=== PATIENT | female | born 1940 | race Caucasian/White ===

== ENCOUNTER 2021-05-13 11:18 | Outpatient (REF) | payer MEDICARE, SELFPAY | END 2021-05-13 11:19 | disposition home or self-care (01) | LOC: HO.LAB 11:18 | PROVIDERS: PCP Internal Medicine; Visit Provider Internal Medicine | DX: Z20.822 Contact with and (suspected) exposure to COVID-19 (principal) | CPT/HCPCS: C9803; U0003; U0005 ==

== ENCOUNTER 2021-08-11 09:49 | Outpatient (REF) | payer MEDICARE, SELFPAY ==
--- NOTE | ~2021-08-11 | MM_ITS ---
EXAMINATION: MM SCREENING DIGITAL BREAST TOMOSYNTHESIS, BILATERAL CLINICAL INFORMATION: Screening. Asymptomatic. The lifetime risk of breast cancer based on the Tyrer-Cuzick Model is 0.8%. COMPARISON: Mammography: June 04, 2020 and studies dating back to November 03, 2016 TECHNIQUE: Digital breast tomosynthesis is performed in both the craniocaudal and mediolateral oblique views along with computer-aided detection (CAD). Synthesized 2D images are generated from the tomosynthesis. Left exaggerated craniocaudal view also performed. FINDINGS: There are scattered areas of fibroglandular density (ACR BI-RADS breast composition Category b). There are no significant masses, abnormal calcifications, or other abnormalities. MM/MM tomosynthesis screening BI IMPRESSION: There are no significant changes from prior study. ASSESSMENT: BI-RADS 1: Negative RECOMMENDATION: Routine annual mammography screening. This patient's information was entered into a reminder system with a target due date for their next mammogram.
== END 2021-08-11 09:50 | disposition home or self-care (01) ==
LOC: HO.MAMMO 09:49
PROVIDERS: Visit Provider Internal Medicine
DX: Z12.31 Encounter for screening mammogram for malignant neoplasm of breast (principal)
CPT/HCPCS: 77063; 77067

== ENCOUNTER 2022-08-12 11:56 | Outpatient (REF) | payer MEDICARE, SELFPAY ==
--- NOTE | ~2022-08-12 | MM_ITS ---
EXAMINATION: MM SCREENING DIGITAL BREAST TOMOSYNTHESIS, BILATERAL CLINICAL INFORMATION: Screening. Asymptomatic. The lifetime risk of breast cancer based on the Tyrer-Cuzick Model is 0.4%. COMPARISON: Mammography: August 11, 2021 and studies dating back to July 02, 2003 TECHNIQUE: Digital breast tomosynthesis is performed in both the craniocaudal and mediolateral oblique views along with computer-aided detection (CAD). Synthesized 2D images are generated from the tomosynthesis. FINDINGS: There are scattered areas of fibroglandular density (ACR BI-RADS breast composition Category b). There are no significant masses, abnormal calcifications, or other abnormalities. MM/MM tomosynthesis screening BI IMPRESSION: No significant changes from prior exam. ASSESSMENT: BI-RADS 1: Negative RECOMMENDATION: Routine annual mammography screening. This patient's information was entered into a reminder system with a target due date for their next mammogram.
== END 2022-08-12 11:57 | disposition home or self-care (01) ==
LOC: HO.MAMMO 11:56
PROVIDERS: PCP Internal Medicine; Visit Provider Internal Medicine
DX: Z12.31 Encounter for screening mammogram for malignant neoplasm of breast (principal)
CPT/HCPCS: 77063; 77067

== ENCOUNTER → 2022-10-19 12:42 | Outpatient (REF) | payer MEDICARE, SELFPAY ==
--- NOTE | 2022-10-19 12:45 | CA_ITS ---
Transthoracic Echocardiogram Patient (Last, First, Middle): Cristina Rey A Gender: Female Date of : 1940 Age: 82 Procedure Date: 10/19/2022 Procedure Type: Transthoracic Echocardiogram Location: OP Height: 167.64 cm Weight: 111.59 kg BSA: 2.18 m2 Heart Rate: 74 bpm BP: 160 / 90 mmHg Buffet Waiter/Waitress: ROBE Referring MD: Rishi Curiel MD Symptoms: NEW MURMUR Study Quality: Technically Difficult/Contrast ECG Rhythm: Sinus Conclusions: - The left ventricular systolic function is hyperdynamic. The visually estimated ejection fraction is >70%. - There is severe aortic valve stenosis. Findings Procedure Information Contrast agent, definity, is being given per protocol without apparent complications. Left Ventricle Normal left ventricular cavity size. There is normal left ventricular wall thickness. The left ventricular systolic function is hyperdynamic. The visually estimated ejection fraction is >70%. There is no evidence of regional wall motion abnormalities. Diastolic function is normal for age. Right Ventricle Normal right ventricular cavity size. There is normal right ventricular systolic function. TAPSE slightly decreased, but could be underestimate. Atria Both atria are normal in size. Aortic Valve There is severe calcification of the aortic valve. There is severe aortic valve stenosis. The peak aortic velocity is 4.29 m/s with a calculated peak gradient of 74 mmHg. The mean gradient is 52 mmHg. The aortic valve area is 0.80 cm2. There is no aortic valve regurgitation. Mitral Valve There is moderate mitral annular calcification. Mean gradient across the mitral valve 4 mm Hg at 74/Min. Cannot exclude mild mitral stenosis. Pulmonic Valve The pulmonic valve is likely normal. Tricuspid Valve There is trace tricuspid valve regurgitation. Tricuspid regurgitation envelope is inadequate for calculation of right ventricular systolic pressure. Great Vessels The asc aorta is normal in size. Venous The inferior vena cava is normal in size and collapses greater than 50% with inspiration. Pericardium/Pleural There is no evidence of pericardial effusion. Prior Study Comparison Changes noted compared to prior study dated: 05/02/2019. Progression of aortic stenosis. Measurements 2D Linear Measurements IVSd: 0.97 0.6-0.9/0.6-1.0 cm LVIDd: 4.48 3.9-5.3/4.2-5.9 cm LVIDd Index: 2.06 2.4-3.2/2.2-3.1 cm/m2 LVIDs: 2.99 2.0-3.6 cm LVPWd: 0.92 0.7-1.1 cm LA Diam: 4.40 2.7-3.8/3.0-4.0 cm LAIDs Index: 2.02 1.5-2.3 cm/m2 LV Mass: 174.16 67-162/88-224 g LV Mass Index: 79.89 43-95/49-115 g/m2 LVOT Diam: 2.00 3.0+(-)1.3 cm 2D Systolic Function EF 4C: 84.10 >55% EF 2C: 81.00 >55% EF BiP: 82.40 >55% Mitral Valve MV VTI: 0.35 MV Pk Ja: 1.47 MV Mn Ja: 0.93 MV Pk Grad: 9.00 MV Mn Grad: 4.00 MV Pk E: 1.03 MV PK A: 1.50 MV Decel Time: 162.00 E/A: 0.70 E'Lateral: 5.43 E'Medial: 4.56 E/E' Med: 22.60 E/E' Lat: 19.00 PHT: 47.00 MVA PHT: 4.68 MVA Continuity: 2.36 Decel [place]: 6.34 Aortic Valve AoV Pk Ja: 4.29 AoV Mn Ja: 2.92 AoV VTI: 0.88 AoV Pk Grad: 74.00 Aov Mn Grad: 52.00 ARNULFO Cont.VTI: 0.80 LVOT LVOT Pk Ja: 1.11 LVOT Mn Ja: 0.84 LVOT VTI: 0.26 LVOT Pk Grad: 5.00 LVOT Mn Grad: 4.00 LVOT Diam: 2.00 LVOT Area: 3.14 Diastolic Function MV Pk E: 1.03 MV Pk A: 1.50 E/A: 0.70 E'Medial: 4.56 E/E' Med: 22.60 E' Laterial: 5.43 E/E' Lat: 19.00 Right Ventricle TAPSE (mm): 16.30 TVS' Ja: 11.70 Tricuspid Valve RA Press: 3.00 Great Vessels Aorta Sinus of Valsalva: 3.10 2.0-3.5 cm Ao Asc: 2.70 2.1-3.4 cm Pulmonary Valve PV Pk Ja: 0.98 Peak PV Grad: 4.00 Updated in Other Vendor System with Status of Final Chan Jones MD electronically signed on 10/20/2022 12:02:08 PM with status of Final
== END ==
LOC: HO.CARD 12:42
PROVIDERS: Visit Provider Internal Medicine
DX: R01.1 Cardiac murmur, unspecified (principal)
CPT/HCPCS: 93306; Q9957

== ENCOUNTER 2022-10-26 13:53 | Outpatient (REF) | payer MEDICARE, SELFPAY ==
[2022-10-26 16:02] LABS: Hematocrit 43.5 % (37.0-47.0); Hemoglobin 13.8 g/dl (12.0-16.0); Mean Corpuscular HGB Conc 31.7 g/dl (31.0-35.0); Mean Corpuscular Hemoglobin 28.7 pg (27.0-33.0); Mean Corpuscular Volume 90.4 fL (80.0-98.0); Platelet Count 183 X10*3/uL (160-400); Red Blood Count 4.81 X10*6/uL (4.20-5.50); Red Cell Distribution Width 12.6 % (11.0-16.0); White Blood Count 8.3 X10*3/uL (4.8-10.8)
[2022-10-26 16:14] LABS: Prothrombin Time 11.5 SEC (10.0-13.1)
[2022-10-26 17:40] LABS: Anion Gap 14 (12-20); Blood Urea Nitrogen 23 mg/dL (9-16); Calcium 9.8 mg/dL (8.4-10.2); Carbon Dioxide 26 mmol/L (22-29); Chloride 108 mmol/L (96-108); Estimated Glomerular Filt Rate > 60; Glucose Random 92 mg/dL (60-115); Potassium 4.8 mmol/L (3.3-5.1); Sodium 143 mmol/L (135-145)
== END 2022-10-26 13:54 | disposition home or self-care (01) ==
LOC: HO.LAB 13:53
PROVIDERS: PCP Internal Medicine; Visit Provider Internal Medicine
DX: I35.0 Nonrheumatic aortic (valve) stenosis (principal); I10 Essential (primary) hypertension
CPT/HCPCS: 36415; 80048; 85027; 85610; 99202

== ENCOUNTER → 2022-11-30 13:35 | Outpatient (BNVA) | payer MEDICARE, SELFPAY | PROVIDERS: PCP Internal Medicine; Referring Provider Internal Medicine; Visit Provider Internal Medicine | DX: I35.0 Nonrheumatic aortic (valve) stenosis (principal); I25.10 Atherosclerotic heart disease of native coronary artery without angina pectoris; I10 Essential (primary) hypertension; Z79.82 Long term (current) use of aspirin; Z79.899 Other long term (current) drug therapy | CPT/HCPCS: 99212 ==

== ENCOUNTER 2023-01-27 09:28 | Outpatient (REF) | payer MEDICARE, SELFPAY ==
[2023-01-27 10:10] LABS: Hemoglobin 13.2 g/dl (12.0-16.0); Mean Corpuscular HGB Conc 32.2 g/dl (31.0-35.0); Mean Corpuscular Hemoglobin 28.6 pg (27.0-33.0); Mean Corpuscular Volume 88.9 fL (80.0-98.0); Mean Platelet Volume 10.3 fL (9.4-12.3); Platelet Count 188 X10*3/uL (160-400); Red Blood Count 4.61 X10*6/uL (4.20-5.50); Red Cell Distribution Width 13.2 % (11.0-16.0); White Blood Count 8.4 X10*3/uL (4.8-10.8)
[2023-01-27 10:14] LABS: Prothrombin Time 11.3 SEC (10.0-13.1)
[2023-01-27 10:38] LABS: Anion Gap 14 (12-20); Blood Urea Nitrogen 25 mg/dL (9-16); Calcium 9.1 mg/dL (8.4-10.2); Carbon Dioxide 25 mmol/L (22-29); Chloride 109 mmol/L (96-108); Estimated Glomerular Filt Rate 60; Glucose Random 100 mg/dL (60-115); Sodium 143 mmol/L (135-145)
== END 2023-01-27 09:29 | disposition home or self-care (01) ==
LOC: HO.LAB 09:28
PROVIDERS: PCP Internal Medicine; Visit Provider Internal Medicine Cardiovascular Disease
DX: I35.0 Nonrheumatic aortic (valve) stenosis (principal)
CPT/HCPCS: 36415; 80048; 85027; 85610

== ENCOUNTER → 2023-03-24 12:41 | Outpatient (REF) | payer MEDICARE, SELFPAY ==
--- NOTE | 2023-03-24 12:46 | CA_ITS ---
Transthoracic Echocardiogram Patient (Last, First, Middle): Cristina Rey A Gender: Female Date of : 1940 Age: 83 Procedure Date: 03/24/2023 Procedure Type: Transthoracic Echocardiogram Location: OP Height: 167.64 cm Weight: 116.12 kg BSA: 2.22 m2 Heart Rate: 71 bpm BP: 150 / 82 mmHg It Architecture Analyst: SB Referring MD: Michael Good MD Barrow Worker: Fritz Teague MD Symptoms: S/P TRANSAORTIC VALVE REPLACEMENT Study Quality: Fair ECG Rhythm: Sinus Conclusions: - 1. Technically limited study despite use of contrast agent 2. Hyperdynamic LV systolic function with LVEF of greater than 70% with impaired relaxation filling pattern 3. Normally function bioprosthetic aortic valve with mean gradient of 4 mmHg 4. Upper limits of normal right ventricular systolic pressure Findings Procedure Information Contrast agent, definity, is being given per protocol without apparent complications. Left Ventricle Normal left ventricular cavity size. There is normal left ventricular wall thickness. The left ventricular systolic function is hyperdynamic. The visually estimated ejection fraction is >70%. Spectral Doppler is indicative of an impaired relaxation filling pattern. E/E prime ratio is between 8 and 15 consistent with indeterminate filling pressures. Right Ventricle Normal right ventricular cavity size and systolic function. Atria The left atrium is normal in size. Interatrial shunt cannot be excluded. The right atrium is normal in size. Aortic Valve A bioprosthetic aortic valve is present. The prosthetic aortic valve appears to be functioning normally. The aortic valve was not well visualized. The mean gradient is 4 mmHg. There is no aortic valve regurgitation. the bioprosthetic valve is well-seated without any obvious rocking motion Mitral Valve The mitral valve was not well visualized. There is mild anterior and posterior mitral leaflet thickening. There is mild mitral annular calcification. There is no mitral valve regurgitation. There is no mitral valve stenosis. Pulmonic Valve The pulmonic valve was not well visualized. Tricuspid Valve The right ventricular systolic pressure is 35 mmHg. There is no evidence of pulmonary hypertension. Great Vessels The aorta was not well visualized. The pulmonary artery was not well visualized. Venous The inferior vena cava is normal in size and collapses greater than 50% with inspiration. Pericardium/Pleural The pericardium was not well visualized. Prior Study Comparison Changes noted compared to prior study dated: 10/19/2022. Normally functioning bioprosthetic aortic valve has replaced severe aortic stenosis Measurements 2D Linear Measurements IVSd: 0.78 0.6-0.9/0.6-1.0 cm LVIDd: 5.26 3.9-5.3/4.2-5.9 cm LVIDd Index: 2.37 2.4-3.2/2.2-3.1 cm/m2 LVIDs: 3.49 2.0-3.6 cm LVPWd: 0.57 0.7-1.1 cm LA Diam: 4.70 2.7-3.8/3.0-4.0 cm LAIDs Index: 2.12 1.5-2.3 cm/m2 LV Mass: 149.55 67-162/88-224 g LV Mass Index: 67.36 43-95/49-115 g/m2 LVOT Diam: 1.90 3.0+(-)1.3 cm 2D Systolic Function EF 4C: 78.90 >55% EF 2C: 77.70 >55% EF BiP: 78.30 >55% Mitral Valve MV VTI: 0.36 MV Pk Ja: 1.25 MV Mn Ja: 0.83 MV Pk Grad: 6.00 MV Mn Grad: 3.00 MV Pk E: 0.94 MV PK A: 1.27 MV Decel Time: 268.00 E/A: 0.70 E'Lateral: 4.80 E'Medial: 3.98 E/E' Med: 23.50 E/E' Lat: 19.50 PHT: 79.00 MVA PHT: 2.78 MVA Continuity: 2.11 Decel [place]: 3.49 Aortic Valve AoV Pk Ja: 1.39 AoV Mn Ja: 0.96 AoV VTI: 0.33 AoV Pk Grad: 8.00 Aov Mn Grad: 4.00 ARNULFO Cont.VTI: 2.31 LVOT LVOT Pk Ja: 1.17 LVOT Mn Ja: 0.87 LVOT VTI: 0.26 LVOT Pk Grad: 5.00 LVOT Mn Grad: 4.00 LVOT Diam: 1.90 LVOT Area: 2.84 Diastolic Function MV Pk E: 0.94 MV Pk A: 1.27 E/A: 0.70 E'Medial: 3.98 E/E' Med: 23.50 E' Laterial: 4.80 E/E' Lat: 19.50 Right Ventricle TAPSE (mm): 15.80 TVS' Ja: 8.81 Tricuspid Valve TR Pk Ja: 2.81 TR Pk Grad: 32.00 RA Press: 3.00 RVSP: 35.00 Great Vessels Aorta Ao Asc: 3.10 2.1-3.4 cm Pulmonary Valve PV Pk Ja: 0.96 Peak PV Grad: 4.00 Updated in Other Vendor System with Status of Final Fritz Teague MD electronically signed on 03/24/2023 2:57:47 PM with status of Final
== END ==
LOC: HO.CARD 12:41
PROVIDERS: PCP Internal Medicine; Visit Provider Internal Medicine Interventional Cardiology
DX: Z95.2 Presence of prosthetic heart valve (principal)
CPT/HCPCS: 93306; Q9957

== ENCOUNTER 2023-06-23 10:04 | Outpatient (AMB) | payer MEDICARE, SELFPAY ==
[2023-04-07 13:08] VITALS: BP 138/60; BP 180/70
[2023-05-30 13:17] VITALS: BP 126/72; BMI 38.8
[2023-06-23 10:30] VITALS: BP 140/72; PULSE 72; BMI 38.4
--- NOTE | 2023-06-23 10:30 | A.OFFVIS_ITS ---
Intake Vital Signs 06/23/23 10:30 Height 5 ft 6 in Weight 238 lb 1.588 oz BMI 38.4 BP 140/72 H Blood Pressure Location Lt brachial Position Sitting Pulse 72 Pulse Source Pulse Oximeter Intake Visit Reasons: f/up tavr Allergies No Known Allergies Allergy (Verified 06/23/23 10:34) Medication List - Last Reconciled 06/23/23 by Chan Jones MD aspirin (Adult Aspirin Regimen) 81 mg PO DAILY atorvastatin 80 mg PO DAILY clopidogrel 75 mg PO DAILY lisinopril 20 mg PO DAILY metoprolol tartrate 50 mg PO BID HPI HPI Comments History of Present Illness Details Cristina returns for follow-up. Recently seen in consultation regarding aortic stenosis. Subsequently, underwent cardiac catheterization that showed LAD disease but otherwise unremarkable. After that, went for TAVR and she states she is doing so much better. Symptoms improved significantly. No longer short of breath. Otherwise doing well and also going to cardiac rehab. [facility] Medical History (Updated 11/30/22 @ 14:23 by Chan Jones MD) Atherosclerotic cardiovascular disease Essential (primary) hypertension Non-rheumatic aortic stenosis Family History Father Heart attack Mother Lung cancer Social History Alcohol intake: current Alcohol intake frequency: holidays/special occasions only Alcohol type: beer Patient Tobacco Use Status: Former Tobacco user Review of Systems ENT Reports dizziness Card Denies chest pain, Denies chest pain at rest, Denies chest pain with activity, Denies rapid heart rate, Denies pedal edema, Denies edema, Denies leg edema, Denies lightheadedness, Denies palpitations, Denies dyspnea, Denies dyspnea on exertion and Denies orthopnea Resp Denies cough, Denies dyspnea and Denies dyspnea on exertion GI Denies hematochezia and Denies change in stool character Musc Denies abnormal gait, Reports limited range of motion, Reports muscle cramps, Denies muscle weakness, Denies numbness, Denies radiating pain into limb, Denies stiffness and Denies tingling Neuro Denies abnormal gait, Reports dizziness, Denies numbness and Denies tingling Endo Denies palpitations Physical Exam Vital Signs: Last Vital Signs Pulse 72 06/23/23 10:30 BP 140/72 H 06/23/23 10:30 BMI result Body Mass Index 38.4 Const General: comfortable and no acute distress Orientation/consciousness: patient oriented x3 HEENT Other: Unremarkable Head: Yes normal to inspection Neck Neck: Yes normal visual inspection Chest Chest palpation & inspection: normal inspection of the chest Resp Auscultation: clear to auscultation bilaterally Cardio Palpation: normal PMI Heart sounds: S1 normal heart sound present, S2 normal heart sound present, no gallops, Murmur heart sound present systolic II/ and at the right sternal border and no rubs GI Palpation (GI): Soft to palpation Back/Spine/Pelvis Other: unremarkable Skin General skin exam: no rashes or lesions noted Neuro General: patient oriented x3 Extrem General: Yes normal to inspection Psych Mental Status: mental status grossly normal Assessment & Plan Assessment & Plan (1) Non-rheumatic aortic stenosis: Code(s): I35.0 - Nonrheumatic aortic (valve) stenosis Plan: Status post TAVR. Continue aspirin indefinitely. Plavix for the next few months. Antibiotic prophylaxis per protocol. Otherwise, continue cardiac rehabilitation. (2) Atherosclerotic cardiovascular disease: Code(s): I25.10 - Atherosclerotic heart disease of [place] coronary artery without angina pectoris Plan: In the cardiac catheterization, severe proximal LAD stenosis. RCA with mild irregularities. Otherwise, nothing significant. Status post PCI to LAD with drug-eluting stent. Continue aspirin. Plavix for 1 year from the time of stent. Continue statins. She can consolidate her labs through her own PCP for lipids. (3) Essential (primary) hypertension: Code(s): I10 - Essential (primary) hypertension Plan: Borderline blood pressures. She states on other occasions they are much lower. No specific changes made. Plan Discussed with daughter who came for appointment. Coding Level of Care Code Est Pt Level 4 (65206) Diagnoses Non-rheumatic aortic stenosis I35.0 Atherosclerotic cardiovascular disease I25.10 Essential (primary) hypertension I10
== END 2023-06-23 10:50 | disposition home or self-care (01) ==
PROVIDERS: PCP Internal Medicine; Referring Provider Internal Medicine; Visit Provider Internal Medicine
DX: I35.0 Nonrheumatic aortic (valve) stenosis (principal); I25.10 Atherosclerotic heart disease of native coronary artery without angina pectoris; I10 Essential (primary) hypertension
CPT/HCPCS: 99214

== ENCOUNTER → 2023-06-23 10:04 | Outpatient (BNVA) | payer MEDICARE, SELFPAY ==
[2023-04-07 13:08] VITALS: BP 138/60; BP 180/70
[2023-05-30 13:17] VITALS: BP 126/72; BMI 38.8
== END ==
PROVIDERS: PCP Internal Medicine; Referring Provider Internal Medicine; Visit Provider Internal Medicine
DX: I35.0 Nonrheumatic aortic (valve) stenosis (principal); I25.10 Atherosclerotic heart disease of native coronary artery without angina pectoris; I10 Essential (primary) hypertension
CPT/HCPCS: 99212

== ENCOUNTER 2023-08-16 11:39 | Outpatient (REF) | payer MEDICARE, SELFPAY ==
--- NOTE | ~2023-08-16 | MM_ITS ---
EXAMINATION: MM SCREENING DIGITAL BREAST TOMOSYNTHESIS, BILATERAL CLINICAL INFORMATION: Screening. Asymptomatic. COMPARISON: Mammography: This study is compared with prior exams dating back to 2019. TECHNIQUE: Digital breast tomosynthesis is performed in both the craniocaudal and mediolateral oblique views along with computer-aided detection (CAD). Synthesized 2D images are generated from the tomosynthesis. FINDINGS: There are scattered areas of fibroglandular density (ACR BI-RADS breast composition Category b). There are no significant masses, abnormal calcifications, or other abnormalities. There are unchanged, benign secretory calcifications at the lower inner quadrant of the left breast. MM/MM tomosynthesis screening BI IMPRESSION: No mammographic evidence of malignancy. ASSESSMENT: BI-RADS BI-RADS 2 - Benign Findings RECOMMENDATION: Routine annual mammography screening. 1 year F/U This examination should not preclude the clinical evaluation of a suspicious palpable abnormality. This patient's information was entered into a reminder system with a target due date for their next mammogram.
== END 2023-08-16 11:40 | disposition home or self-care (01) ==
LOC: HO.MAMMO 11:39
PROVIDERS: PCP Internal Medicine; Visit Provider Internal Medicine
DX: Z12.31 Encounter for screening mammogram for malignant neoplasm of breast (principal)
CPT/HCPCS: 77063; 77067

== ENCOUNTER → 2023-08-16 12:00 | Outpatient (BNV) | payer MEDICARE, SELFPAY ==
[2023-07-18 17:19] VITALS: BP 134/64; BP 138/60; BP 180/70; BMI 38.8
== END ==
PROVIDERS: PCP Internal Medicine; Visit Provider Radiology Diagnostic Radiology
DX: Z12.31 Encounter for screening mammogram for malignant neoplasm of breast (principal)
CPT/HCPCS: 77063; 77067

== ENCOUNTER 2024-01-09 10:21 | Outpatient (AMB) | payer MEDICARE, SELFPAY ==
[2023-04-07 13:08] VITALS: BP 138/60; BP 180/70
[2023-05-30 13:17] VITALS: BP 126/72; BMI 38.8
[2023-07-18 17:19] VITALS: BP 134/64; BP 138/60; BP 180/70; BMI 38.8
--- NOTE | 2024-01-09 10:23 | MHC.OFFVIS ---
Intake Vital Signs 01/09/24 10:24 Height 5 ft 6 in Weight 244 lb 11.41 oz BMI 39.5 BP 160/76 H Blood Pressure Location Lt brachial Position Sitting Pulse 74 Intake Visit Reasons: 6 month follow up Intake Note: 6 month follow up Structural Iron Worker Required: No Accompanied by: Daughter Allergies No Known Allergies Allergy (Verified 01/09/24 10:26) Medication List - Last Reconciled 01/09/24 by Chan Jones MD aspirin (Adult Aspirin Regimen) 81 mg PO DAILY atorvastatin 80 mg PO DAILY clopidogrel 75 mg PO DAILY lisinopril 20 mg PO DAILY metoprolol tartrate 50 mg PO BID HPI HPI Comments History of Present Illness Details Cristina returns for follow-up. History of transcatheter aortic valve replacement as well as LAD stenting. Overall, she states she is doing pretty good. No complaints like angina or shortness of breath or in fact anything cardiac sounding. [facility] Medical History (Updated 01/09/24 @ 10:38 by Chan Jones MD) LBBB (left bundle branch block) Atherosclerotic cardiovascular disease Essential (primary) hypertension Non-rheumatic aortic stenosis Surgical History (Updated 01/09/24 @ 10:43 by Chan Jones MD) Status post transcatheter aortic valve replacement (TAVR) using bioprosthesis Family History Father Heart attack Mother Lung cancer Social History Alcohol intake: current Alcohol intake frequency: holidays/special occasions only Alcohol type: beer Patient Tobacco Use Status: Former Tobacco user Review of Systems Const All systems reviewed & are unremarkable except as noted in HPI and below Reports as per HPI and Reports no additional complaints Eyes Reports as per HPI and Denies no additional complaints ENT Denies no additional complaints and Reports as per HPI Card Reports as per HPI, Reports no additional complaints, Denies acrocyanosis, Denies chest pain, Denies leg edema, Denies lightheadedness, Denies palpitations and Denies dyspnea Resp Reports as per HPI, Denies no additional complaints and Denies dyspnea GI Reports as per HPI and Denies no additional complaints Reports as per HPI Musc Reports no additional complaints and Reports as per HPI Skin/Breast Reports system reviewed and no additional complaints, except as documented Neuro Reports no additional complaints and Reports as per HPI Psych Reports no additional complaints and Reports as per HPI Endo Reports no additional complaints, Reports as per HPI and Denies palpitations Raymond/Lymph Reports no additional complaints and Reports as per HPI Aller/Immun Reports no additional complaints and Reports as per HPI Physical Exam Vital Signs: Last Vital Signs Pulse 74 01/09/24 10:24 BP 160/76 H 01/09/24 10:24 BMI result Body Mass Index 39.5 Const General: comfortable and no acute distress Orientation/consciousness: patient oriented x3 HEENT Other: Unremarkable Head: Yes normal to inspection Neck Neck: Yes normal visual inspection Chest Chest palpation & inspection: normal inspection of the chest Resp Auscultation: clear to auscultation bilaterally Cardio Palpation: normal PMI Heart sounds: S1 normal heart sound present, S2 normal heart sound present, no gallops, Murmur heart sound present systolic II/ and at the right sternal border and no rubs GI Palpation (GI): Soft to palpation Back/Spine/Pelvis Other: unremarkable Skin General skin exam: no rashes or lesions noted Neuro General: patient oriented x3 Extrem General: Yes normal to inspection Psych Mental Status: mental status grossly normal Office Procedures EKG Details: EKG with sinus rhythm at 74/Min; sinus arrhythmia; WA prolongation to 124 milliseconds; left bundle-branch block pattern. [id number], Complete Assessment & Plan Assessment & Plan (1) Status post transcatheter aortic valve replacement (TAVR) using bioprosthesis: Code(s): Z95.3 - Presence of xenogenic heart valve Plan: Status post TAVR. Continue aspirin indefinitely. May stop Plavix. Antibiotic prophylaxis per protocol. Echo before next visit. (2) Atherosclerotic cardiovascular disease: Code(s): I25.10 - Atherosclerotic heart disease of [place] coronary artery without angina pectoris Plan: In the cardiac catheterization, severe proximal LAD stenosis. RCA with mild irregularities. Otherwise, nothing significant. Status post PCI to LAD with drug-eluting stent. Continue aspirin long-term. Continue statins. She can consolidate her labs through her own PCP for lipids. Will request the same. (3) LBBB (left bundle branch block): Code(s): I44.7 - Left bundle-branch block, unspecified Plan: Noted post TAVR. Will need to be followed. Findings discussed with patient. Discussed consequence from progression of conduction system disease. Beta-blockers probably not ideal in the long run but she already has high blood pressures and hence probably not stop at this time. May be in the future but will need to be replaced by something else for hypertension. (4) Essential (primary) hypertension: Code(s): I10 - Essential (primary) hypertension Plan: Blood pressures are running high. We discussed about this today. She states that home blood pressures are much lower. Any case, advised her to check trend for the next few weeks and get back to us. Not clear if she truly has white coat hypertension or she is just doing home blood pressures incorrectly. Plan Discussed with daughter who came for appointment. Orders: Orders CA echo transthoracic complete 6 Months Z95.3 - Presence of xenogenic heart valve Medications: Discontinued clopidogrel Discontinued Reason: Doctor's Order 75 mg PO DAILY 90 tabs 3RF I35.0 - Nonrheumatic aortic (valve) stenosis Coding Level of Care Code Est Pt Level 4 (13715) Diagnoses Status post transcatheter aortic valve replacement (TAVR) using bioprosthesis Z95.3 Atherosclerotic cardiovascular disease I25.10 LBBB (left bundle branch block) I44.7 Essential (primary) hypertension I10 CPT Codes EKG - CPT: 29400-[id number], Complete ([id number])
[2024-01-09 10:24] VITALS: BP 160/76; PULSE 74; BMI 39.5
== END 2024-01-09 10:52 | disposition home or self-care (01) ==
PROVIDERS: PCP Internal Medicine; Visit Provider Internal Medicine
DX: Z95.3 Presence of xenogenic heart valve (principal); I25.10 Atherosclerotic heart disease of native coronary artery without angina pectoris; I44.7 Left bundle-branch block, unspecified; I10 Essential (primary) hypertension
CPT/HCPCS: 93010; 99214

== ENCOUNTER → 2024-01-09 10:21 | Outpatient (BNVA) | payer MEDICARE, SELFPAY ==
[2023-07-18 17:19] VITALS: BP 134/64; BP 138/60; BP 180/70; BMI 38.8
== END ==
PROVIDERS: PCP Internal Medicine; Visit Provider Internal Medicine
DX: I25.10 Atherosclerotic heart disease of native coronary artery without angina pectoris (principal); I44.7 Left bundle-branch block, unspecified; I10 Essential (primary) hypertension; Z95.3 Presence of xenogenic heart valve
CPT/HCPCS: 93005; 99212

== ENCOUNTER 2024-02-17 11:21 | Outpatient (REF) | payer MEDICARE, SELFPAY ==
[2024-01-09 10:46] VITALS: BP 134/64; BP 138/60; BP 180/70; BMI 38.8
[2024-02-17 13:35] LABS: MANUAL DIFF FLAG NO
[2024-02-17 13:41] LABS: Basophils Absolute Auto 0.1 X10*3/uL (0.0-0.2); Basophils Percent Auto 0.9 % (0-2); Eosinophils Absolute Auto 0.4 X10*3/uL (0.0-0.4); Eosinophils Percent Auto 4.1 % (0-4); Hematocrit 42.9 % (37.0-47.0); Hemoglobin 13.8 g/dl (12.0-16.0); Imm Gran Abs Auto 0.01 X10*3/uL (0.00-0.03); Imm Gran Pct Auto 0.1 % (0.0-0.4); Lymphocytes Absolute Auto 3.2 X10*3/uL (1.2-4.9); Mean Corpuscular HGB Conc 32.2 g/dl (31.0-35.0); Mean Corpuscular Hemoglobin 29.9 pg (27.0-33.0); Mean Corpuscular Volume 92.9 fL (80.0-98.0); Mean Platelet Volume 10.9 fL (9.4-12.3); Monocytes Absolute Auto 0.9 X10*3/uL (0.1-1.2); Monocytes Percent Auto 9.4 % (2-11); Neutrophils Absolute Auto 4.6 x10*3/uL (2.0-8.3); Neutrophils Percent Auto 50.5 % (45-73); Platelet Count 215 X10*3/uL (160-400); Red Blood Count 4.62 X10*6/uL (4.20-5.50); Red Cell Distribution Width 13.1 % (11.0-16.0)
[2024-02-17 14:04] LABS: Anion Gap 16 (12-20); Blood Urea Nitrogen 19 mg/dL (9-16); Calcium 9.3 mg/dL (8.4-10.2); Carbon Dioxide 25 mmol/L (22-29); Chloride 107 mmol/L (96-108); Estimated Glomerular Filt Rate > 60; Glucose Random 97 mg/dL (60-115); Potassium 4.6 mmol/L (3.3-5.1); Sodium 143 mmol/L (135-145)
== END 2024-02-17 11:22 | disposition home or self-care (01) ==
LOC: HO.HMGCLDS 11:21
PROVIDERS: PCP Internal Medicine; Visit Provider Internal Medicine Interventional Cardiology
DX: I35.0 Nonrheumatic aortic (valve) stenosis (principal)
CPT/HCPCS: 36415; 80048; 85025

== ENCOUNTER 2024-05-17 09:40 | Outpatient (REF) | payer MEDICARE, SELFPAY ==
[2024-01-09 10:46] VITALS: BP 134/64; BP 138/60; BP 180/70; BMI 38.8
[2024-05-17 12:58] LABS: MANUAL DIFF FLAG NO
[2024-05-17 13:03] LABS: Basophils Absolute Auto 0.1 X10*3/uL (0.0-0.2); Eosinophils Absolute Auto 0.4 X10*3/uL (0.0-0.4); Eosinophils Percent Auto 4.8 % (0-4); Hematocrit 40.1 % (37.0-47.0); Hemoglobin 12.9 g/dl (12.0-16.0); Imm Gran Abs Auto 0.02 X10*3/uL (0.00-0.03); Imm Gran Pct Auto 0.3 % (0.0-0.4); Lymphocytes Absolute Auto 2.3 X10*3/uL (1.2-4.9); Lymphocytes Percent Auto 31.8 % (20-40); Mean Corpuscular HGB Conc 32.2 g/dl (31.0-35.0); Mean Corpuscular Hemoglobin 29.3 pg (27.0-33.0); Mean Corpuscular Volume 91.1 fL (80.0-98.0); Mean Platelet Volume 10.9 fL (9.4-12.3); Monocytes Absolute Auto 0.5 X10*3/uL (0.1-1.2); Monocytes Percent Auto 7.5 % (2-11); Neutrophils Percent Auto 54.6 % (45-73); Platelet Count 200 X10*3/uL (160-400); Red Cell Distribution Width 13.2 % (11.0-16.0); White Blood Count 7.2 X10*3/uL (4.8-10.8)
[2024-05-17 13:16] LABS: Estimated Average Glucose 114 mg/dL; Hemoglobin A1c % 5.6 % (<6.0)
[2024-05-17 13:23] LABS: Alanine Aminotransferase 12 U/L (0-31); Albumin Level 3.9 g/dL (3.5-5.0); Alkaline Phosphatase 68 U/L (39-117); Anion Gap 11 (12-20); Aspartate Amino Transferase 15 U/L (5-31); Bilirubin Total 0.5 mg/dL (0.0-1.0); Blood Urea Nitrogen 20 mg/dL (9-16); Calcium 9.4 mg/dL (8.4-10.2); Carbon Dioxide 27 mmol/L (22-29); Chloride 110 mmol/L (96-108); Cholesterol 176 mg/dL (<200); Estimated Glomerular Filt Rate > 60; Glucose Fasting 108 mg/dL (60-99); HDL Cholesterol 47 mg/dL (>40); LDL Cholesterol Calculated 98 mg/dL (<100); Potassium 4.3 mmol/L (3.3-5.1); Sodium 144 mmol/L (135-145); Total Protein 6.2 g/dL (6.5-8.0); Triglycerides 157 mg/dL (<150)
== END 2024-05-17 09:41 | disposition home or self-care (01) ==
LOC: HO.HMGCLDS 09:40
PROVIDERS: PCP Internal Medicine; Visit Provider Internal Medicine
DX: R53.83 Other fatigue (principal); R73.09 Other abnormal glucose; E78.5 Hyperlipidemia, unspecified
CPT/HCPCS: 36415; 80053; 80061; 83036; 85025

== ENCOUNTER 2024-06-11 11:41 | Outpatient (REF) | payer MEDICARE, SELFPAY ==
[2024-01-09 10:46] VITALS: BP 134/64; BP 138/60; BP 180/70; BMI 38.8
[2024-06-11 11:45] VITALS: BP 155/71; PULSE 75; RESP 17; TEMP 36.4; O2SAT 98; BMI 40.3
== END 2024-06-11 11:42 | disposition home or self-care (01) ==
LOC: HO.MS 11:41
PROVIDERS: PCP Internal Medicine; Visit Provider Ophthalmology
PROC: (CPT 67840; principal; 2024-06-11 14:50)
DX: H02.822 Cysts of right lower eyelid (principal); L82.1 Other seborrheic keratosis
CPT/HCPCS: 67840; 88304; 88305; 88341; 88342

== ENCOUNTER → 2024-07-02 12:38 | Outpatient (REF) | payer MEDICARE, SELFPAY ==
[2024-01-09 10:46] VITALS: BP 134/64; BP 138/60; BP 180/70; BMI 38.8
--- NOTE | 2024-07-02 12:42 | CA_ITS ---
Transthoracic Echocardiogram Patient (Last, First, Middle): Cristina Rey A Gender: Female Date of : 1940 Age: 84 Procedure Date: 07/02/2024 Procedure Type: Transthoracic Echocardiogram Location: OP Height: 167. cm Weight: 113.4 kg BSA: 2.19 m2 Heart Rate: 96 bpm BP: 135 / 85 mmHg Feather Shaper: ROBE Jordan MD: Chan Jones MD Deputy Chief Sheriff: Fritz Teague MD Symptoms: Z95.3 - Presence of xenogenic heart valve Study Quality: Technically Difficult ECG Rhythm: Sinus Conclusions: - 1. Technically limited study with LVEF of 65-70% 2. Normally function bioprosthetic aortic valve with mean gradient of 8 mm Hg 3. Cardiac valvular Dopplers within normal limits Findings Procedure Information Contrast agent, definity, is being given per protocol without apparent complications. Left Ventricle The left ventricle was not well visualized. The visually estimated ejection fraction is between 65-70%. Spectral Doppler is indicative of an impaired relaxation filling pattern. Right Ventricle The right ventricle was not well visualized. There is normal right ventricular systolic function. Atria The left atrium was not well visualized. Interatrial shunt cannot be excluded. The right atrium was not well visualized. Aortic Valve A bioprosthetic aortic valve is present. The prosthetic aortic valve appears to be functioning normally. The aortic valve was not well visualized. The mean gradient is 8 mmHg. Mitral Valve The mitral valve was not well visualized. There is moderate anterior and severe posterior mitral leaflet thickening. There is severe mitral annular calcification. There is no mitral valve regurgitation. Pulmonic Valve The pulmonic valve was not well visualized. Tricuspid Valve The tricuspid valve was not well visualized. Tricuspid regurgitation envelope is inadequate for calculation of right ventricular systolic pressure. Great Vessels The aorta was not well visualized. The pulmonary artery was not well visualized. Venous The inferior vena cava was not well visualized. Pericardium/Pleural The pericardium was not well visualized. Prior Study Comparison No significant change compared to prior study dated: 03/24/2023. Measurements 2D Linear Measurements IVSd: 1.17 0.6-0.9/0.6-1.0 cm LVIDd: 3.35 3.9-5.3/4.2-5.9 cm LVIDd Index: 1.53 2.4-3.2/2.2-3.1 cm/m2 LVIDs: 2.16 2.0-3.6 cm LVPWd: 1.09 0.7-1.1 cm LA Diam: 4.00 2.7-3.8/3.0-4.0 cm LAIDs Index: 1.83 1.5-2.3 cm/m2 LV Mass: 144.52 67-162/88-224 g LV Mass Index: 65.99 43-95/49-115 g/m2 LVOT Diam: 1.80 3.0+(-)1.3 cm 2D Systolic Function EF 4C: 70.50 >55% EF 2C: 69.80 >55% EF BiP: 70.10 >55% Mitral Valve MV VTI: 0.41 MV Pk Ja: 1.55 MV Mn Ja: 0.90 MV Pk Grad: 10.00 MV Mn Grad: 4.00 MV Pk E: 0.93 MV PK A: 1.56 MV Decel Time: 308.00 E/A: 0.60 E'Lateral: 5.77 E'Medial: 4.35 E/E' Med: 21.30 E/E' Lat: 16.10 PHT: 90.00 MVA PHT: 2.44 MVA Continuity: 1.81 Decel [place]: 3.01 Aortic Valve AoV Pk Ja: 1.74 AoV Mn Ja: 1.25 AoV VTI: 0.34 AoV Pk Grad: 12.00 Aov Mn Grad: 8.00 ARNULFO Cont.VTI: 2.20 LVOT LVOT Pk Ja: 1.49 LVOT Mn Ja: 1.05 LVOT VTI: 0.29 LVOT Pk Grad: 9.00 LVOT Mn Grad: 5.00 LVOT Diam: 1.80 LVOT Area: 2.54 Diastolic Function MV Pk E: 0.93 MV Pk A: 1.56 E/A: 0.60 E'Medial: 4.35 E/E' Med: 21.30 E' Laterial: 5.77 E/E' Lat: 16.10 Right Ventricle TAPSE (mm): 22.40 TVS' Ja: 8.92 Tricuspid Valve RA Press: 3.00 Great Vessels Aorta Sinus of Valsalva: 2.50 2.0-3.5 cm Ao Asc: 2.90 2.1-3.4 cm Pulmonary Valve PV Pk Ja: 0.87 Peak PV Grad: 3.00 Updated in Other Vendor System with Status of Final Fritz Teague MD electronically signed on 07/03/2024 12:06:08 PM with status of Final
== END ==
LOC: HO.CARD 12:38
PROVIDERS: PCP Internal Medicine; Visit Provider Internal Medicine
DX: Z95.3 Presence of xenogenic heart valve (principal)
CPT/HCPCS: 93306; Q9957

== ENCOUNTER → 2024-07-02 12:42 | Outpatient (BNV) | payer MEDICARE, SELFPAY ==
[2024-01-09 10:46] VITALS: BP 134/64; BP 138/60; BP 180/70; BMI 38.8
== END ==
PROVIDERS: PCP Internal Medicine; Visit Provider Internal Medicine Cardiovascular Disease
DX: I34.81 Nonrheumatic mitral (valve) annulus calcification (principal); Z95.3 Presence of xenogenic heart valve
CPT/HCPCS: 93306

== ENCOUNTER 2024-07-17 11:22 | Outpatient (AMB) | payer MEDICARE, SELFPAY ==
[2023-07-18 17:19] VITALS: BP 134/64; BP 138/60; BP 180/70; BMI 38.8
[2024-01-09 10:46] VITALS: BP 134/64; BP 138/60; BP 180/70; BMI 38.8
[2024-07-17 11:23] VITALS: BP 160/74; PULSE 74; BMI 40.3
--- NOTE | 2024-07-17 11:23 | A.OFFVIS_ITS ---
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 History of transcatheter aortic valve replacement as well as LAD stenting. Since last seen, no new complaints. [facility] Medical History (Updated 01/09/24 @ 10:38 by Chan Jones MD) LBBB (left bundle branch block) Atherosclerotic cardiovascular disease Essential (primary) hypertension Non-rheumatic aortic stenosis Surgical History Status post transcatheter aortic valve replacement (TAVR) using bioprosthesis Family History Father Heart attack Mother Lung cancer Social History Alcohol intake: current Alcohol intake frequency: holidays/special occasions only Alcohol type: beer Patient Tobacco Use Status: Former Tobacco user Review of Systems Const Denies chills, Denies fatigue, Denies fever(s), Denies weight gain and Denies weight loss ENT Denies dizziness Card Denies chest pain, Denies leg edema, Denies lightheadedness, Denies palpitations, Denies dyspnea on exertion, Denies orthopnea and Denies other Resp Denies cough and Denies dyspnea on exertion GI Denies hematochezia and Denies change in stool character Musc Denies abnormal gait, Denies muscle weakness, Denies numbness, Denies radiating pain into limb and Denies tingling Neuro Denies abnormal gait, Denies dizziness, Denies numbness and Denies tingling Endo Denies fatigue and Denies palpitations Physical Exam Vital Signs: Last Vital Signs Pulse 74 07/17/24 11:23 BP 160/74 H 07/17/24 11:23 BMI result Body Mass Index 40.3 Const General: comfortable and no acute distress Orientation/consciousness: patient oriented x3 HEENT Other: Unremarkable Head: Yes normal to inspection Neck Neck: Yes normal visual inspection Chest Chest palpation & inspection: normal inspection of the chest Resp Auscultation: clear to auscultation bilaterally Cardio Palpation: normal PMI Heart sounds: S1 normal heart sound present, S2 normal heart sound present, no gallops, Murmur heart sound present systolic II/ and at the right sternal border and no rubs GI Palpation (GI): Soft to palpation Back/Spine/Pelvis Other: unremarkable Skin General skin exam: no rashes or lesions noted Neuro General: patient oriented x3 Extrem General: Yes normal to inspection Psych Mental Status: mental status grossly normal Assessment & Plan Assessment & Plan (1) Status post transcatheter aortic valve replacement (TAVR) using bioprosthesis: Code(s): Z95.3 - Presence of xenogenic heart valve Category: Surgical Plan: Status post TAVR. Continue aspirin. Antibiotic prophylaxis per protocol. Echocardiogram with normal bioprosthetic valve function. (2) Atherosclerotic cardiovascular disease: Code(s): I25.10 - Atherosclerotic heart disease of [place] coronary artery without angina pectoris Category: Medical Plan: In the cardiac catheterization, severe proximal LAD stenosis. RCA with mild irregularities. Otherwise, nothing significant. Status post PCI to LAD. Continue aspirin. Continue statins. (3) LBBB (left bundle branch block): Code(s): I44.7 - Left bundle-branch block, unspecified Category: Medical Plan: Noted post TAVR. Will need to be followed any progressive conduction system disease. (4) Essential (primary) hypertension: Code(s): I10 - Essential (primary) hypertension Category: Medical Plan: Increase amlodipine to 10 mg daily. Lisinopril at the current dose. Medications: New amlodipine 10 mg PO DAILY 90 tabs 3RF Discontinued amlodipine New BP med from Dr. Jones Discontinued Reason: Doctor's Order 5 mg PO DAILY 90 tabs 3RF Coding Level of Care Code Est Pt Level 4 (91775) Diagnoses Status post transcatheter aortic valve replacement (TAVR) using bioprosthesis Z95.3 Atherosclerotic cardiovascular disease I25.10 LBBB (left bundle branch block) I44.7 Essential (primary) hypertension I10
== END 2024-07-17 11:36 | disposition home or self-care (01) ==
PROVIDERS: PCP Internal Medicine; Visit Provider Internal Medicine
DX: Z95.3 Presence of xenogenic heart valve (principal); I25.10 Atherosclerotic heart disease of native coronary artery without angina pectoris; I44.7 Left bundle-branch block, unspecified; I10 Essential (primary) hypertension
CPT/HCPCS: 99214

== ENCOUNTER → 2024-07-17 11:22 | Outpatient (BNVA) | payer MEDICARE, SELFPAY ==
[2024-01-09 10:46] VITALS: BP 134/64; BP 138/60; BP 180/70; BMI 38.8
== END ==
PROVIDERS: PCP Internal Medicine; Visit Provider Internal Medicine
DX: I25.10 Atherosclerotic heart disease of native coronary artery without angina pectoris (principal); I44.7 Left bundle-branch block, unspecified; I10 Essential (primary) hypertension; Z95.3 Presence of xenogenic heart valve
CPT/HCPCS: 99212

== ENCOUNTER 2024-08-21 11:33 | Outpatient (REF) | payer MEDICARE, SELFPAY ==
[2023-07-18 17:19] VITALS: BP 134/64; BP 138/60; BP 180/70; BMI 38.8
[2024-01-09 10:46] VITALS: BP 134/64; BP 138/60; BP 180/70; BMI 38.8
--- NOTE | ~2024-08-21 | MM_ITS ---
EXAMINATION: MM SCREENING DIGITAL BREAST TOMOSYNTHESIS, BILATERAL CLINICAL INFORMATION: Screening. Asymptomatic. COMPARISON: Mammography: Comparison is made with available priors TECHNIQUE: Digital breast mammography with tomosynthesis is performed in both the craniocaudal and mediolateral oblique views along with computer-aided detection (CAD). FINDINGS: There are scattered areas of fibroglandular density (ACR BI-RADS breast composition Category b). Stable secretory calcifications retroareolar region of the left breast. There are no significant masses, abnormal calcifications, or other abnormalities. MM/MM tomosynthesis screening BI IMPRESSION: No mammographic evidence of malignancy. ASSESSMENT: BI-RADS BI-RADS 2 - Benign Findings RECOMMENDATION: Routine annual mammography screening. 1 year F/U This examination should not preclude the clinical evaluation of a suspicious palpable abnormality. This patient's information was entered into a reminder system with a target due date for their next mammogram. Electronically signed by: Sheba Malik DO 08/29/2024 01:16 PM [facility]
== END 2024-08-21 11:34 | disposition home or self-care (01) ==
LOC: HO.MAMMO 11:33
PROVIDERS: PCP Internal Medicine; Visit Provider Internal Medicine
DX: Z12.31 Encounter for screening mammogram for malignant neoplasm of breast (principal)
CPT/HCPCS: 77063; 77067

== ENCOUNTER → 2024-08-21 12:00 | Outpatient (BNV) | payer MEDICARE, SELFPAY ==
[2024-01-09 10:46] VITALS: BP 134/64; BP 138/60; BP 180/70; BMI 38.8
== END ==
PROVIDERS: PCP Internal Medicine; Visit Provider Internal Medicine
DX: Z12.31 Encounter for screening mammogram for malignant neoplasm of breast (principal)
CPT/HCPCS: 77063; 77067

== ENCOUNTER 2025-01-21 10:15 | Outpatient (AMB) | payer MEDICARE, SELFPAY ==
[2024-01-09 10:46] VITALS: BP 134/64; BP 138/60; BP 180/70; BMI 38.8
--- NOTE | 2025-01-21 10:43 | MHC.OFFVIS ---
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 History of transcatheter aortic valve replacement as well as LAD stenting. She states that she is feeling very good. No new complaints. [facility] Medical History (Updated 01/09/24 @ 10:38 by Chan Jones MD) LBBB (left bundle branch block) Atherosclerotic cardiovascular disease Essential (primary) hypertension Non-rheumatic aortic stenosis Surgical History Status post transcatheter aortic valve replacement (TAVR) using bioprosthesis Family History Father Heart attack Mother Lung cancer Social History Alcohol intake: current Alcohol intake frequency: holidays/special occasions only Alcohol type: beer Patient Tobacco Use Status: Former Tobacco user Review of Systems Const Denies chills, Denies fatigue, Denies fever(s), Denies weight gain and Denies weight loss ENT Denies dizziness Card Denies chest pain, Denies leg edema, Denies lightheadedness, Denies palpitations, Denies dyspnea on exertion, Denies orthopnea and Denies other Resp Denies cough and Denies dyspnea on exertion GI Denies hematochezia and Denies change in stool character Musc Denies abnormal gait, Denies muscle weakness, Denies numbness, Denies radiating pain into limb and Denies tingling Neuro Denies abnormal gait, Denies dizziness, Denies numbness and Denies tingling Endo Denies fatigue and Denies palpitations Physical Exam Vital Signs: Last Vital Signs Pulse 76 01/21/25 10:44 BP 130/68 01/21/25 10:44 BMI result Body Mass Index 40.5 Const General: comfortable and no acute distress Orientation/consciousness: patient oriented x3 HEENT Other: Unremarkable Head: Yes normal to inspection Neck Neck: Yes normal visual inspection Chest Chest palpation & inspection: normal inspection of the chest Resp Auscultation: clear to auscultation bilaterally Cardio Palpation: normal PMI Heart sounds: S1 normal heart sound present, S2 normal heart sound present, no gallops, Murmur heart sound present systolic II/ and at the right sternal border and no rubs GI Palpation (GI): Soft to palpation Back/Spine/Pelvis Other: unremarkable Skin General skin exam: no rashes or lesions noted Neuro General: patient oriented x3 Extrem General: Yes normal to inspection Psych Mental Status: mental status grossly normal Office Procedures EKG Details: EKG with underlying sinus rhythm at 76/Min; AK prolongation at 244 milliseconds; left bundle-branch block. [id number], Complete Assessment & Plan Assessment & Plan (1) Status post transcatheter aortic valve replacement (TAVR) using bioprosthesis: Code(s): Z95.3 - Presence of xenogenic heart valve Category: Surgical Plan: Status post TAVR. Continue aspirin. Antibiotic prophylaxis per protocol. Echocardiogram with normal bioprosthetic valve function. (2) Atherosclerotic cardiovascular disease: Code(s): I25.10 - Atherosclerotic heart disease of [place] coronary artery without angina pectoris Category: Medical Plan: In the cardiac catheterization, severe proximal LAD stenosis. RCA with mild irregularities. Otherwise, nothing significant. Status post PCI to LAD. Continue aspirin and statins. (3) LBBB (left bundle branch block): Code(s): I44.7 - Left bundle-branch block, unspecified Category: Medical Plan: Noted post TAVR. Will need to be followed any progressive conduction system disease. (4) Essential (primary) hypertension: Code(s): I10 - Essential (primary) hypertension Category: Medical Plan: On amlodipine, lisinopril. Due to left bundle-branch block and [place] prolongation, we can cut back on the beta-blockers and go up on lisinopril dosing. We discussed about this today. Check BNP few days after lisinopril dose increased. Orders: Orders Basic Metabolic Panel 2 Weeks Z95.3 - Presence of xenogenic heart valve Medications: New metoprolol tartrate 25 mg PO BID 180 tabs 1RF 90 days lisinopril 30 mg PO DAILY 90 tabs 1RF Coding Level of Care Code Est Pt Level 4 (78063) Complex EM visit Add On G2211 Diagnoses Status post transcatheter aortic valve replacement (TAVR) using bioprosthesis Z95.3 Atherosclerotic cardiovascular disease I25.10 LBBB (left bundle branch block) I44.7 Essential (primary) hypertension I10 CPT Codes EKG - CPT: 07239-[id number], Complete ([id number])
[2025-01-21 10:44] VITALS: BP 130/68; PULSE 76; BMI 40.5
== END 2025-01-21 11:04 | disposition home or self-care (01) ==
LOC: HO.HCS 10:16
PROVIDERS: PCP Internal Medicine; Visit Provider Internal Medicine
DX: Z95.3 Presence of xenogenic heart valve (principal); I25.10 Atherosclerotic heart disease of native coronary artery without angina pectoris; I44.7 Left bundle-branch block, unspecified; I10 Essential (primary) hypertension
CPT/HCPCS: 93010; 99214; G2211

== ENCOUNTER → 2025-01-21 10:15 | Outpatient (BNVA) | payer MEDICARE, SELFPAY ==
[2024-01-09 10:46] VITALS: BP 134/64; BP 138/60; BP 180/70; BMI 38.8
== END ==
PROVIDERS: PCP Internal Medicine; Visit Provider Internal Medicine
DX: I25.10 Atherosclerotic heart disease of native coronary artery without angina pectoris (principal); I44.7 Left bundle-branch block, unspecified; I10 Essential (primary) hypertension; Z95.3 Presence of xenogenic heart valve
CPT/HCPCS: 93005; 99212

== ENCOUNTER 2025-02-13 11:06 | Outpatient (REF) | payer MEDICARE, SELFPAY ==
[2024-01-09 10:46] VITALS: BP 134/64; BP 138/60; BP 180/70; BMI 38.8
[2025-02-13 14:03] LABS: Anion Gap 15 (12-20); Blood Urea Nitrogen 28 mg/dL (9-16); Calcium 9.2 mg/dL (8.4-10.2); Carbon Dioxide 25 mmol/L (22-29); Chloride 108 mmol/L (96-108); Estimated Glomerular Filt Rate 58; Glucose Random 97 mg/dL (60-115); Potassium 4.8 mmol/L (3.3-5.1); Sodium 143 mmol/L (135-145)
== END 2025-02-13 11:07 | disposition home or self-care (01) ==
LOC: HO.HMGCLDS 11:06
PROVIDERS: PCP Internal Medicine; Visit Provider Internal Medicine
DX: Z95.3 Presence of xenogenic heart valve (principal)
CPT/HCPCS: 36415; 80048

== ENCOUNTER 2025-03-22 10:22 | Outpatient (AMB) | payer MEDICARE, SELFPAY ==
[2024-01-09 10:46] VITALS: BP 134/64; BP 138/60; BP 180/70; BMI 38.8
--- NOTE | 2025-03-22 10:33 | A.OFFPC_ITS ---
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: No Accompanied by: Self / Same As Patient Allergies No Known Allergies Allergy (Verified 03/22/25 10:50) Medication List - Last Reconciled 03/22/25 by Ashley Jaramillo PA-C amlodipine 10 mg PO DAILY aspirin (Adult Aspirin Regimen) 81 mg PO DAILY atorvastatin 80 mg PO DAILY lisinopril 30 mg PO DAILY metoprolol tartrate 50 mg PO BID Tobacco use date assessed: 03/22/25 Fall risk assessment: No Falls in past year Last assessed Fall Risk: 03/22/25 Dental Screening Dental Screen Date: 03/22/25 Did you have a dental visit in the last 12 months?: Yes Did you have a dental problem in the last 6 months where you did not have access to dental care?: No Was dental information given to patient?: Patient has dentist HPI [facility] HPI Details The patient is an 85-year-old female presenting to [facility] following the long term of her previous primary physician. She reports a history of undergoing a TAVR procedure using bioprosthesis due to severe LAD stenting and minor irregularities in the RCA with a present left bundle branch block. Myalgias test with Robert recommended continuing on amlodipine, lisinopril although cutting back on the beta-ana paula. This was done January 2025. She had a BNP a few days later and had a normal kidney function after the increase in the lisinopril. Patient reports since then she has not had any side effects from the increase in the lisinopril. The patient has been continuing with aspirin and atorvastatin therapy as recommended post-TAVR. She follows a routine of regular mammograms, with the last screening occurring in July. She declines a colonoscopy, citing no personal history of gastrointestinal concerns previously addressed. Recently completed laboratory tests in January of the same year indicated normal chemistry panel results. She is advised for fasting blood tests by May to monitor cholesterol and other parameters routinely, given that her prior annual check was a year ago. Social History - Lives with her daughter, Celia. - Has two daughters, with Celia hicks as the healthcare proxy; another daughter is secondary. - No history of colon cancer screening a nd declines current recommendation; regular mammograms are up to date. - Practices reduced engagement with [employer], preferring a landline for communication. [facility] Medical History (Updated 03/22/25 @ 11:31 by Ashley Jaramillo PA-C) Morbid obesity with BMI of 40.0-44.9, adult Hypertriglyceridemia Patient is full code (~03/22/25) Patient has healthcare proxy History of mammogram (~08/21/24) Establishing care with new doctor, encounter for Colon cancer screening declined LBBB (left bundle branch block) Atherosclerotic cardiovascular disease Essential (primary) hypertension Non-rheumatic aortic stenosis Surgical History Status post transcatheter aortic valve replacement (TAVR) using bioprosthesis Family History Father Heart attack Mother Lung cancer Social History Housing: House Alcohol intake: current Alcohol intake frequency: holidays/special occasions only Alcohol type: beer Patient Tobacco Use Status: Former Tobacco user service: No Current occupational status: retired Cognitive needs: No Hearing needs: No Vision needs: Yes (rx glasses) Questionnaire PHQ-9 Over the last 2 weeks, how often have you been bothered by any of the following problems? 1. Little interest or pleasure in doing things: not at all 2. Feeling down, depressed, or hopeless: not at all 3. Trouble falling or staying asleep, or sleeping too much: not at all 4. Feeling tired or having little energy: not at all 5. Poor appetite or overeating: not at all 6. Feeling bad about yourself - or that you are a failure or have let yourself or your family down: not at all 7. Trouble concentrating on things, such as reading the newspaper or watching television: not at all 8. Moving or speaking so slowly that other people could have noticed. Or the opposite - being so fidgety or restless that you have been moving around a lot more than usual: not at all 9. Thoughts that you would be better off or of hurting yourself in some way: not at all Total score: 0 Depression Screening Interpretation: Negative Depression Screening Done: Yes 32710 - PHQ-9 Billing: Yes Source: Developed by Drs. Jorge Mendoza, Kylie Neff, Russ Spence and colleagues, with an educational jonathan from [employer]. Thrive Questionnaire Date Thrive assessed: 03/22/25 I am a: Patient What is your living situation today?: I have a steady place to live Within the past 12 months, did the food you bought not last and you didn't have the money to get more?: Never true Within the past 12 months, did you worry whether your food would run out before you got money to buy more?: Never true Do you have trouble paying for medicines?: No Do you have trouble getting transportation to medical appointments?: No Do you have trouble paying your heating and electricity bill?: No Do you have trouble taking care of your child, family member or friend?: No Do you have trouble with day-to-day activities such as bathing, preparing meals, shopping, managing finances, etc.?: No Are you currently unemployed and looking for a job?: No Are you interested in more education?: No Please select the resources that you would like help with: None THRIVE Score: 0 AUDIT C Alcohol Use Questionnaire (AUDIT-C) 1. How often do you have a drink containing alcohol?: Monthly or less 2. How many drinks containing alcohol do you have on a typical day when you are drinking?: 1 or 2 3. How often do you have six or more drinks on one occasion?: Never Total Score: 1 Score Reviewed/Action Taken: No SOFY-7 AMB Questionnaire SOFY-7 Date SOFY - 7 assessed: 03/22/25 Feeling nervous, anxious, or on edge: 0 = Not at all Not being able to stop or control worryin = Not at all Worrying too much about different things: 0 = Not at all Trouble relaxin = Not at all Being so restless that it is hard to sit still: 0 = Not at all Becoming easily annoyed or irritable: 0 = Not at all Feeling afraid as if something awful might happen: 0 = Not at all Total SOFY-7 score (0-4 normal; 5-9 mild; 10-14 moderate; 15-21 severe): 0 Source: Developed by Drs. Jorge Mendoza, Kylie Neff, Russ Spence and colleagues, with an educational jonathan from [employer]. SOFY-7 Assessment Billing SOFY-7 Assessment Tool: SOFY-7 Assessment 24295 Review of Systems Const Details: - Cardiovascular: Reports history of TAVR due to severe LAD stenting, RCA irr egularities, left bundle branch block. Denies new or worsening cardiac symptoms such as chest pain or palpitations. - Musculoskeletal: Denies recent changes impacting mobility significantly. - Gastrointestinal: Declines colonoscopy with no current or past noted gastrointestinal complaints. - Respiratory: Denies respiratory complaints. - Neurological: Denies recent neurological symptoms or changes. Physical exam (Primary Care) Vital Signs: Last Vital Signs Temp 98.1 F 03/22/25 10:34 Pulse 88 03/22/25 10:34 Resp 14 03/22/25 10:34 BP 120/58 L 03/22/25 10:34 Pulse Ox 95 03/22/25 10:34 Oxygen Delivery Method Room Air 03/22/25 10:34 Care Plan Goal for BP management: <140/90 at Goal BMI result Body Mass Index 41.6 BMI Assessment/Plan discussion: High BMI High, discussed plan: lifestyle, weight reduction, dietary, physical activity and alcohol moderation Tobacco/Smoking Status: Tobacco use Status Tobacco use date assessed 03/22/25 03/22/25 10:43 Patient Tobacco Use Status Former Tobacco user 03/22/25 10:43 PHQ-9: PHQ-9 Score PHQ-9: Total score 0 03/22/25 10:43 Depression Screening Interpretation: Negative Thrive Assessment: Date of Thrive Assessment Date Thrive assessed 03/22/25 03/22/25 10:43 Advance Care Planning discussion: Completed/Scanned Date of discussion: 03/22/25 Who was present: Patient, THEODORE Cardenas Forms completed: Health Care Proxy and MOLST Time spent: 16-45 minutes Actual minutes spent: 25 Did not discuss due to Cultural/Spiritual beliefs: No Const Other: Appearance: Alert. Oriented X3. No acute distress. Head: Normal external exam. Normocephalic. Atraumatic. Eyes: Pupils are equal, round, and reactive to light. Extraocular movements intact. Conjunctiva and sclera normal. Eyelids normal. Throat: Moist mucous membranes. Neck: Normal inspection. Neck supple. Full range of motion. Cardiovascular: Normal heart rate and rhythm. Heart sound normal. Pulses normal throughout. Respiratory: No respiratory distress. Painless inspiration. Breath sounds normal. No wheezes/rales/rhonchi noted. Chest nontender. No accessory muscle usage noted or decreased air movement noted. Back: Full range of motion noted. Skin: Skin warm and dry. Normal skin color. Normal skin turgor. No rashes/lesions/lacerations noted. Extremities: +1 lower extremity edema. Extremities exhibit normal range of motion. Extremities nontender. Neuro: Oriented X 3. No motor deficit. No sensory deficit. Reflexes normal. Results Reviewed Results Reviewed: - Labs: Normal kidney function, sodium, glucose, calcium levels from [facility] on February 13, 2025. - Other tests: Echocardiogram indicated normal bioprosthetic valve function; cardiac catheterization revealed severe proximal LAD stenting and RCA irregularities patient s/p TAVR. Patient being followed by Robert Coding Level of Care Code New Pt Level 4 (54066) Complex EM visit Add On G2211 Diagnoses Establishing care with new doctor, encounter for Z76.89 Colon cancer screening declined Z53.20 Patient has healthcare proxy Z78.9 Patient is full code Z78.9 Status post transcatheter aortic valve replacement (TAVR) using bioprosthesis Z95.3 Essential (primary) hypertension I10 Hypertriglyceridemia E78.1 LBBB (left bundle branch block) I44.7 Morbid obesity with BMI of 40.0-44.9, adult E66.01; Z68.41 Additional Codes PHQ-9 - 35304 - PHQ-9 Billing: Yes ([id number]) SOFY-7 Assessment Billing - SOFY-7 Assessment Tool: SOFY-7 Assessment 72205 ([id number]) Vital Signs *Quality* - Advance Care Planning discussion: Completed/Scanned ([id number]) Vital Signs *Quality* - Time spent: 16-45 minutes ([id number]) Assessment & Plan Assessment & Plan (1) Establishing care with new doctor, encounter for: Code(s): Z76.89 - Persons encountering health services in other specified circumstances Category: Medical (2) Colon cancer screening declined: Code(s): Z53.20 - Procedure and treatment not carried out because of patient's decision for unspecified reasons Category: Medical Plan: Patient declining colon cancer screening reports she has never had a colonoscopy and is not interested in having 1. (3) Patient has healthcare proxy: Comment: Daughter Celia Rey Code(s): Z78.9 - Other specified health status Category: Social Hx Plan: MOLST form filled out today. Patient will be a full code. Discussed healthcare proxy. Patient filled out form. Copy uploaded to the patient's chart and patient brought original home. Instructed to discuss with her family her health care planning advanced wishes. (4) Patient is full code: Onset Date: ~03/22/25 Code(s): Z78.9 - Other specified health status Category: Medical Plan: MOLST form filled out today. Patient will be a full code. Discussed healthcare proxy. Patient filled out form. Copy uploaded to the patient's chart and patient brought original home. Instructed to discuss with her family her health care planning advanced wishes. (5) Status post transcatheter aortic valve replacement (TAVR) using bioprosthesis: Code(s): Z95.3 - Presence of xenogenic heart valve Category: Surgical Plan: Continued monitoring of normal bioprosthetic valve function via echocardiograms. Maintenance of cardiovascular health supported by aspirin and atorvastatin, mitigating risks of valve failure. Condition is chronic and stable will continue to monitor. (6) Essential (primary) hypertension: Code(s): I10 - Essential (primary) hypertension Category: Medical Plan: Managing blood pressure with amlodipine and lisinopril, with planned beta- ana paula dose reduction due to left bundle branch block. Emphasis on vigilant blood pressure monitoring. Condition is chronic and stable continue to monitor. (7) Hypertriglyceridemia: Code(s): E78.1 - Pure hyperglyceridemia Category: Medical Plan: Sustain atorvastatin therapy and arrange fasting cholesterol test before next annual wellness evaluation, adjusting lipid management based on outcomes. Condition is chronic and stable will continue to monitor. (8) LBBB (left bundle branch block): Code(s): I44.7 - Left bundle-branch block, unspecified Category: Medical Plan: Management of electrical conduction anomaly using increased dose of lisinopril, recognizing patient concern over confusion around heart's wiring system discussed. Patient to continue being followed by Dr. Jones the ball racker. Condition is chronic and stable will continue to monitor. (9) Morbid obesity with BMI of 40.0-44.9, adult: Code(s): E66.01 - Morbid (severe) obesity due to excess calories; Z68.41 - Body mass index [BMI] 40.0-44.9, adult Category: Medical Plan: Patient has improved diet and exercise regimen. Condition is chronic and stable continue to monitor. Plan Plan Patient was informed and verbally consented to the use of an ambient scribe for clinic note documentation during this visit. 1. Status Post Transcatheter Aortic Valve Replacement Tavr Continued monitoring of normal bioprosthetic valve function via echocardiograms. Maintenance of cardiovascular health supported by aspirin and atorvastatin, mitigating risks of valve failure. 2. Essential Hypertension Managing blood pressure with amlodipine and lisinopril, with planned beta- ana paula dose reduction due to left bundle branch block. Emphasis on vigilant blood pressure monitoring. 3. Hyperlipidemia Sustain atorvastatin therapy and arrange fasting cholesterol test before next annual wellness evaluation, adjusting lipid management based on outcomes. 4. Left Bundle Branch Block Management of electrical conduction anomaly using increased dose of lisinopril, recognizing patient concern over confusion around heart's wiring system discussed. 5. Declined Colonoscopy Acknowledges patient's decision against colonoscopy, recommending vigilance via symptom changes and offering primary care screenings such as mammogram support continuation. 6. Mammogram As Preventative Care Encouragement to maintain current annual mammogram schedule, reinforcing importance of breast health vigilance through diagnostic imaging. I discussed with the patient the history of her cardiovascular management, emphasizing the outcomes of tests conducted and adjustments to medications supporting cardiac function and blood pressure control. For the dealing of left bundle branch block, we reviewed reasons behind her recommended medication regimen, primarily focusing on lisinopril dosage. We touched on her autonomy in screening decisions, particularly in declining a colonoscopy, explaining how continuous monitoring would suffice should any new symptoms arise suggestive of lower gastrointestinal alterations or cancer concerns. Given an established [facility] practice of mammography, I affirmed its utility in early detection and reiterated maintaining her check-up plan accordingly. We evaluated the potential for new pharmaceutical adjustments in consultation with the prior physician's references, except allowing discretion regarding prostate cancer or systemic considerations. I explained both short-term and chronic intentions for medication interventions and recovery processes, outlining a phased approach favoring immediate cardiovascular health without overprescribed procedures. Orders: Orders C Reactive Protein Today Z00.00 - Encounter for general adult medical examination without abnormal findings Lipid Panel Today Z00.00 - Encounter for general adult medical examination without abnormal findings Liver Panel Today Z00.00 - Encounter for general adult medical examination without abnormal findings Vitamin B12 and Folate Today Z.00 - Encounter for general adult medical examination without abnormal findings Vitamin D 25-OH Total Today Z00.00 - Encounter for general adult medical examination without abnormal findings TSH reflex Free T4 Today Z00.00 - Encounter for general adult medical examination without abnormal findings Complete Blood Count Auto Diff Today Z00.00 - Encounter for general adult medical examination without abnormal findings Comprehensive Micro. Panel Fast Today Z00.00 - Encounter for general adult medical examination without abnormal findings Hemoglobin A1c Today Z00.00 - Encounter for general adult medical examination without abnormal findings Magnesium Today Z00.00 - Encounter for general adult medical examination without abnormal findings Patient Instructions: - Continue taking prescribed medications: amlodipine, lisinopril, aspirin, and atorvastatin as discussed. - Schedule and complete fasting blood work within the next six months. - Continue annual mammograms in July; monitor for any symptoms between assessments. - Contact my office for any sudden changes in health, especially related to heart symptoms or new needs for medical advice. - Discuss healthcare choices with your daughters, ensuring a clear understanding of preferences during emergencies. - Avoid excessive salt in your diet to prevent foot swelling.
[2025-03-22 10:34] VITALS: BP 120/58; PULSE 88; RESP 14; TEMP 36.7; O2SAT 95; BMI 41.6
== END 2025-03-22 11:19 | disposition home or self-care (01) ==
LOC: HO.HMCSH 10:22
PROVIDERS: PCP Internal Medicine; Visit Provider Physician Assistant Medical
DX: Z76.89 Persons encountering health services in other specified circumstances (principal); Z53.20 Procedure and treatment not carried out because of patient's decision for unspecified reasons; Z78.9 Other specified health status; Z95.3 Presence of xenogenic heart valve; I10 Essential (primary) hypertension; E78.1 Pure hyperglyceridemia; I44.7 Left bundle-branch block, unspecified; E66.01 Morbid (severe) obesity due to excess calories; Z68.41 Body mass index [BMI] 40.0-44.9, adult; Z00.00 Encounter for general adult medical examination without abnormal findings

== ENCOUNTER → 2025-03-22 10:22 | Outpatient (BNVA) | payer MEDICARE, SELFPAY ==
[2024-01-09 10:46] VITALS: BP 134/64; BP 138/60; BP 180/70; BMI 38.8
== END ==
PROVIDERS: PCP Internal Medicine; Visit Provider Physician Assistant Medical
DX: Z76.89 Persons encountering health services in other specified circumstances (principal); Z53.20 Procedure and treatment not carried out because of patient's decision for unspecified reasons; Z78.9 Other specified health status; Z95.3 Presence of xenogenic heart valve; I10 Essential (primary) hypertension; E78.1 Pure hyperglyceridemia; I44.7 Left bundle-branch block, unspecified; E66.01 Morbid (severe) obesity due to excess calories; Z68.41 Body mass index [BMI] 40.0-44.9, adult; Z71.3 Dietary counseling and surveillance
CPT/HCPCS: 96127; 99202; 99497

== ENCOUNTER 2025-06-03 09:21 | Outpatient (REF) | payer MEDICARE, SELFPAY ==
[2024-01-09 10:46] VITALS: BP 134/64; BP 138/60; BP 180/70; BMI 38.8
[2025-06-03 13:18] LABS: MANUAL DIFF FLAG NO
[2025-06-03 13:22] LABS: Hematocrit 40.6 % (37.0-47.0); Hemoglobin 13.0 g/dl (12.0-16.0); Imm Gran Abs Auto 0.03 X10*3/uL (0.00-0.03); Imm Gran Pct Auto 0.3 % (0.0-0.4); Lymphocytes Absolute Auto 3.4 X10*3/uL (1.2-4.9); Mean Corpuscular HGB Conc 32.0 g/dl (31.0-35.0); Mean Corpuscular Hemoglobin 29.3 pg (27.0-33.0); Mean Corpuscular Volume 91.6 fL (80.0-98.0); NRBC Abs Auto 0.000 X10*3/uL (0.0-0.012); NRBC Pct Auto 0.0 /100WBC (0.0-0.2); Platelet Count 213 X10*3/uL (160-400); Red Blood Count 4.43 X10*6/uL (4.20-5.50); White Blood Count 9.3 X10*3/uL (4.8-10.8)
[2025-06-03 13:39] LABS: Hemoglobin A1C 133.6357 umol/L; Total Hemoglobin (HGBA1C) 3511.2093 umol/L
[2025-06-03 13:47] LABS: Alanine Aminotransferase 16 U/L (0-31); Albumin Level 4.2 g/dL (3.5-5.0); Alkaline Phosphatase 73 U/L (39-117); Anion Gap 13 (12-20); Aspartate Amino Transferase 28 U/L (5-31); Blood Urea Nitrogen 21 mg/dL (9-16); Calcium 9.0 mg/dL (8.4-10.2); Carbon Dioxide 27 mmol/L (22-29); Chloride 107 mmol/L (96-108); Cholesterol 195 mg/dL (<200); Estimated Glomerular Filt Rate 51; HDL Cholesterol 44 mg/dL (>40); Magnesium 2.3 mg/dL (1.6-2.6); Potassium 4.3 mmol/L (3.3-5.1); Sodium 143 mmol/L (135-145); Total Protein 6.5 g/dL (6.5-8.0); Triglycerides 192 mg/dL (<150)
[2025-06-03 14:12] LABS: Folate 9.7 ng/mL (> or = 4.0); Vitamin B12 340 pg/mL (200-900)
== END 2025-06-03 09:22 | disposition home or self-care (01) ==
LOC: HO.HMGCLDS 09:21
PROVIDERS: PCP Internal Medicine; Visit Provider Physician Assistant Medical
DX: Z00.00 Encounter for general adult medical examination without abnormal findings (principal); Z13.21 Encounter for screening for nutritional disorder; Z13.6 Encounter for screening for cardiovascular disorders; Z13.29 Encounter for screening for other suspected endocrine disorder
CPT/HCPCS: 36415; 80053; 80061; 80076; 82248; 82306; 82607; 82746; 83036; 83735; 84443; 85025; 86140

== ENCOUNTER 2025-07-30 10:46 | Outpatient (AMB) | payer MEDICARE, SELFPAY ==
[2024-01-09 10:46] VITALS: BP 134/64; BP 138/60; BP 180/70; BMI 38.8
[2025-07-30 11:04] VITALS: BP 130/64; PULSE 84; BMI 42.3
--- NOTE | 2025-07-30 11:04 | A.OFFVIS_ITS ---
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 History of transcatheter aortic valve replacement as well as LAD stenting. She states that she is feeling very good. No new complaints. [facility] Medical History Morbid obesity with BMI of 40.0-44.9, adult Hypertriglyceridemia Patient is full code (~03/22/25) Patient has healthcare proxy History of mammogram (~08/21/24) Establishing care with new doctor, encounter for Colon cancer screening declined LBBB (left bundle branch block) Atherosclerotic cardiovascular disease Essential (primary) hypertension Non-rheumatic aortic stenosis Surgical History Status post transcatheter aortic valve replacement (TAVR) using bioprosthesis Family History Father Heart attack Mother Lung cancer Social History Housing: House Alcohol intake: current Alcohol intake frequency: holidays/special occasions only Alcohol type: beer Patient Tobacco Use Status: Former Tobacco user service: No Current occupational status: retired Cognitive needs: No Hearing needs: No Vision needs: Yes (rx glasses) Review of Systems Const Denies chills, Denies fatigue, Denies fever(s), Denies frequent falls, Denies weakness, Denies weight gain and Denies weight loss ENT Denies dizziness Card Denies chest pain, Denies leg edema, Denies lightheadedness, Denies palpitations, Denies dyspnea and Denies dyspnea on exertion Resp Denies cough, Denies dyspnea and Denies dyspnea on exertion GI Denies hematochezia Musc Denies abnormal gait, Denies muscle weakness, Denies numbness, Denies radiating pain into limb and Denies tingling Neuro Denies abnormal gait, Denies dizziness, Denies frequent falls, Denies numbness, Denies tingling and Denies weakness Endo Denies fatigue and Denies palpitations Physical Exam Vital Signs: Last Vital Signs Pulse 84 07/30/25 11:04 BP 130/64 07/30/25 11:04 BMI result Body Mass Index 42.3 Const General: comfortable and no acute distress Orientation/consciousness: patient oriented x3 HEENT Other: Unremarkable Head: Yes normal to inspection Neck Neck: Yes normal visual inspection Chest Chest palpation & inspection: normal inspection of the chest Resp Auscultation: clear to auscultation bilaterally Cardio Palpation: normal PMI Heart sounds: S1 normal heart sound present, S2 normal heart sound present, no gallops, no murmurs and no rubs GI Palpation (GI): Soft to palpation Back/Spine/Pelvis Other: unremarkable Skin General skin exam: no rashes or lesions noted Neuro General: patient oriented x3 Extrem General: Yes normal to inspection Psych Mental Status: mental status grossly normal Assessment & Plan Assessment & Plan (1) Status post transcatheter aortic valve replacement (TAVR) using bioprosthesis: Code(s): Z95.3 - Presence of xenogenic heart valve Category: Surgical Plan: Status post TAVR. Continue aspirin. Antibiotic prophylaxis per protocol. (2) Atherosclerotic cardiovascular disease: Code(s): I25.10 - Atherosclerotic heart disease of [place] coronary artery without angina pectoris Category: Medical Plan: In the cardiac catheterization, severe proximal LAD stenosis. RCA with mild irregularities. Otherwise, nothing significant. Status post PCI to LAD. Continue aspirin and statins. (3) LBBB (left bundle branch block): Code(s): I44.7 - Left bundle-branch block, unspecified Category: Medical Plan: Noted post TAVR. Will need to be followed any progressive conduction system disease. EKG with next visit. (4) Essential (primary) hypertension: Code(s): I10 - Essential (primary) hypertension Category: Medical Plan: On amlodipine, lisinopril. Seems stable. Plan Discussion NotesDuring the visit, we discussed the patient's overall good health status and ability to perform daily activities without difficulty. We reviewed her recent lab results, which showed normal kidney function and no diabetes, but noted mildly elevated cholesterol levels. We agreed to maintain the current management plan and scheduled an echocardiogram in six months for preventative care. Patient was informed and verbally consented to the use of an ambient scribe for clinic note documentation during this visit. Orders: Orders CA echo transthoracic complete 6 Months Z95.3 - Presence of xenogenic heart valve Patient Instructions: - Continue current lifestyle and medication regimen. - Follow up in six months for an echocardiogram. Coding Level of Care Code Est Pt Level 4 (12118) Complex EM visit Add On G2211 Diagnoses Status post transcatheter aortic valve replacement (TAVR) using bioprosthesis Z95.3 Atherosclerotic cardiovascular disease I25.10 LBBB (left bundle branch block) I44.7 Essential (primary) hypertension I10
== END 2025-07-30 11:20 | disposition home or self-care (01) ==
LOC: HO.HCS 10:47
PROVIDERS: PCP Internal Medicine; Visit Provider Internal Medicine
DX: Z95.3 Presence of xenogenic heart valve (principal); I25.10 Atherosclerotic heart disease of native coronary artery without angina pectoris; I44.7 Left bundle-branch block, unspecified; I10 Essential (primary) hypertension
CPT/HCPCS: 99214; G2211

== ENCOUNTER → 2025-07-30 10:46 | Outpatient (BNVA) | payer MEDICARE, SELFPAY ==
[2024-01-09 10:46] VITALS: BP 134/64; BP 138/60; BP 180/70; BMI 38.8
== END ==
PROVIDERS: PCP Internal Medicine; Visit Provider Internal Medicine
DX: I10 Essential (primary) hypertension (principal); I44.7 Left bundle-branch block, unspecified; I25.10 Atherosclerotic heart disease of native coronary artery without angina pectoris; Z95.3 Presence of xenogenic heart valve
CPT/HCPCS: 99212

== ENCOUNTER 2025-08-23 11:35 | Outpatient (REF) | payer MEDICARE, SELFPAY ==
[2024-01-09 10:46] VITALS: BP 134/64; BP 138/60; BP 180/70; BMI 38.8
== END 2025-08-23 11:36 | disposition home or self-care (01) ==
LOC: HO.MAMMO 11:35
PROVIDERS: PCP Internal Medicine; Visit Provider Internal Medicine
DX: Z12.31 Encounter for screening mammogram for malignant neoplasm of breast (principal)
CPT/HCPCS: 77063; 77067

== ENCOUNTER → 2025-08-23 12:00 | Outpatient (BNV) | payer MEDICARE, SELFPAY ==
[2024-01-09 10:46] VITALS: BP 134/64; BP 138/60; BP 180/70; BMI 38.8
== END ==
PROVIDERS: PCP Internal Medicine; Visit Provider Internal Medicine
DX: Z12.31 Encounter for screening mammogram for malignant neoplasm of breast (principal)
CPT/HCPCS: 77063; 77067

== ENCOUNTER 2025-09-19 12:57 | Outpatient (AMB) | payer MEDICARE, SELFPAY ==
[2024-01-09 10:46] VITALS: BP 134/64; BP 138/60; BP 180/70; BMI 38.8
[2025-09-19 13:00] VITALS: BP 152/65; PULSE 90; RESP 16; TEMP 36.5; O2SAT 97; BMI 41.3
--- NOTE | 2025-09-19 13:00 | MHC.PC.OV ---
Vital Signs 09/19/25 13:00 09/19/25 13:28 Height 5 ft 4.96 in Weight 248 lb BMI 41.3 BP 152/65 H 131/63 Blood Pressure Location Rt brachial Lt brachial Position Sitting Sitting Respiration 16 Pulse 90 73 Pulse Source Pulse Oximeter Monitor Temp 97.7 F Temp Source Temporal Artery Scan Pulse Oximetry (%) 97 Oxygen Delivery Method Room Air Intake Visit Reasons: 6 month f/u Research Interviewer Required: No Accompanied by: Self / Same As Patient Allergies No Known Allergies Allergy (Verified 09/19/25 13:11) Medication List - Last Reconciled 09/19/25 by Ashley Jaramillo PA-C amlodipine 10 mg PO DAILY aspirin (Adult Aspirin Regimen) 81 mg PO DAILY atorvastatin 80 mg PO DAILY ezetimibe (Zetia) 10 mg PO DAILY lisinopril 30 mg PO DAILY metoprolol tartrate 25 mg PO BID Tobacco use date assessed: 03/22/25 Dental Screening Dental Screen Date: 03/22/25 HPI HPI Comments History of Present Illness Details History of Present Illness The patient is an 85 year old female presenting for a six-month follow-up visit. She is a full code and has a healthcare proxy. The patient has a history of transcatheter aortic valve replacement (TAVR) and is followed by cardiology, who recently ordered a follow-up heart ultrasound. Her medical history is significant for hypertension, for which she takes amlodipine 10 mg daily, lisinopril 30 mg daily, and metoprolol 25 mg twice a day. She also has hyperlipidemia, managed with atorvastatin and ezetimibe. Cardiology recommends she continue aspirin and statin therapy. Recent lab work from May showed a GFR of 51, a decrease from 58 in January, indicating mild chronic kidney disease. Her fasting glucose was 118 mg/dL with a hemoglobin A1c of 5.6%. Lipid panel showed elevated triglycerides at 192 mg/dL and an LDL of 113 mg/dL. Her CBC, electrolytes, vitamin D, folate, and thyroid levels were normal. The patient declines colon cancer screening. She reports a high salt intake. She recently took amoxicillin pre-procedurally for a dental appointment that was incorrectly scheduled. Social History - Diet: Reports high salt intake. 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 [facility] Medical History (Updated 09/19/25 @ 13:32 by Ashley Jaramillo PA-C) Healthcare maintenance Prediabetes Kidney disease Morbid obesity with BMI of 40.0-44.9, adult Hypertriglyceridemia Patient is full code (~03/22/25) Patient has healthcare proxy History of mammogram (~08/21/24) Establishing care with new doctor, encounter for Colon cancer screening declined LBBB (left bundle branch block) Atherosclerotic cardiovascular disease Essential (primary) hypertension Non-rheumatic aortic stenosis Surgical History Status post transcatheter aortic valve replacement (TAVR) using bioprosthesis Family History Father Heart attack Mother Lung cancer Social History Housing: House Alcohol intake: current Alcohol intake frequency: holidays/special occasions only Alcohol type: beer Patient Tobacco Use Status: Former Tobacco user service: No Current occupational status: retired Cognitive needs: No Hearing needs: No Vision needs: Yes (rx glasses) Questionnaire PHQ-9 Over the last 2 weeks, how often have you been bothered by any of the following problems? 1. Little interest or pleasure in doing things: not at all 2. Feeling down, depressed, or hopeless: not at all 3. Trouble falling or staying asleep, or sleeping too much: not at all 4. Feeling tired or having little energy: not at all 5. Poor appetite or overeating: not at all 6. Feeling bad about yourself - or that you are a failure or have let yourself or your family down: not at all 7. Trouble concentrating on things, such as reading the newspaper or watching television: not at all 8. Moving or speaking so slowly that other people could have noticed. Or the opposite - being so fidgety or restless that you have been moving around a lot more than usual: not at all 9. Thoughts that you would be better off or of hurting yourself in some way: not at all Total score: 0 Depression Screening Interpretation: Negative Depression Screening Done: Yes 28430 - PHQ-9 Billing: Yes Source: Developed by Drs. Jorge Mendoza, Kylie Neff, Russ Spence and colleagues, with an educational jonathan from [employer]). Thrive Questionnaire Date Thrive assessed: 03/22/25 I am a: Patient What is your living situation today?: I have a steady place to live Within the past 12 months, did the food you bought not last and you didn't have the money to get more?: Never true Within the past 12 months, did you worry whether your food would run out before you got money to buy more?: Never true Do you have trouble paying for medicines?: No Do you have trouble getting transportation to medical appointments?: No Do you have trouble paying your heating and electricity bill?: No Do you have trouble taking care of your child, family member or friend?: No Do you have trouble with day-to-day activities such as bathing, preparing meals, shopping, managing finances, etc.?: No Are you currently unemployed and looking for a job?: No Are you interested in more education?: No Please select the resources that you would like help with: None THRIVE Score: 0 AUDIT C Alcohol Use Questionnaire (AUDIT-C) 1. How often do you have a drink containing alcohol?: Monthly or less 2. How many drinks containing alcohol do you have on a typical day when you are drinking?: 1 or 2 3. How often do you have six or more drinks on one occasion?: Never Total Score: 1 Score Reviewed/Action Taken: No SOFY-7 AMB Questionnaire SOFY-7 Date SOFY - 7 assessed: 03/22/25 Feeling nervous, anxious, or on edge: 0 = Not at all Not being able to stop or control worryin = Not at all Worrying too much about different things: 0 = Not at all Trouble relaxin = Not at all Being so restless that it is hard to sit still: 0 = Not at all Becoming easily annoyed or irritable: 0 = Not at all Feeling afraid as if something awful might happen: 0 = Not at all Total SOFY-7 score (0-4 normal; 5-9 mild; 10-14 moderate; 15-21 severe): 0 Source: Developed by Drs. Jorge Mendoza, Kylie Neff, Russ Spence and colleagues, with an educational jonathan from [employer]). SOFY-7 Assessment Billing SOFY-7 Assessment Tool: SOFY-7 Assessment 43284 Review of Systems Narrative Review of Systems - A full review of systems was not performed as the patient denies any new complaints. Const All systems reviewed & are unremarkable except as noted in HPI and below Physical exam (Primary Care) Vital Signs: Last Vital Signs Temp 97.7 F 09/19/25 13:00 Pulse 90 09/19/25 13:00 Resp 16 09/19/25 13:00 BP 152/65 H 09/19/25 13:00 Pulse Ox 97 09/19/25 13:00 Oxygen Delivery Method Room Air 09/19/25 13:00 Care Plan Goal for BP management: <140/90 at Goal BMI result Body Mass Index 41.3 BMI Assessment/Plan discussion: High BMI High, discussed plan: lifestyle, weight reduction, dietary, physical activity, alcohol moderation and other Tobacco/Smoking Status: Tobacco use Status Tobacco use date assessed 03/22/25 09/19/25 13:07 Patient Tobacco Use Status Former Tobacco user 09/19/25 13:07 PHQ-9: PHQ-9 Score PHQ-9: Total score 0 09/19/25 13:07 Depression Screening Interpretation: Negative Thrive Assessment: Date of Thrive Assessment Date Thrive assessed 03/22/25 09/19/25 13:07 Narrative Physical Exam Appearance: Alert. Oriented X3. No acute distress. Head: Normal external exam. Normocephalic. Atraumatic. Eyes: Pupils are equal, round, and reactive to light. Extraocular movements intact. Conjunctiva and sclera normal. Eyelids normal. Throat: Pharynx normal. Uvula midline. Moist mucous membranes. Neck: Normal inspection. Neck supple. Full range of motion. Cardiovascular: Normal heart rate and rhythm. Respiratory: No respiratory distress. Painless inspiration. Back: Full range of motion noted. Skin: Skin warm and dry. Normal skin color. Normal skin turgor. No rashes/lesions/lacerations noted. Extremities: Extremities exhibit normal range of motion. Neuro: Oriented X 3. No motor deficit. No sensory deficit. Reflexes normal. Results Reviewed Results Reviewed: Results - Labs from May 2025: - CBC: Normal, no anemia. - Chemistry Panel: Sodium, potassium, chloride, and carbon dioxide were normal. - GFR: 51 (decreased from 58 in January). - Fasting glucose: 118 mg/dL. - Hemoglobin A1c: 5.6%. - Magnesium: Normal. - Liver enzymes: Normal. - Triglycerides: 192 mg/dL (elevated). - LDL cholesterol: 113 mg/dL (elevated). - Vitamin D, folate, thyroid: Normal. Coding Level of Care Code Est Pt Level 4 (29426) Complex visit Add On G2211 Diagnoses Essential (primary) hypertension I10 Kidney disease N28.9 Hypertriglyceridemia E78.1 Prediabetes R73.03 Healthcare maintenance Z00.00 Additional Codes SOFY-7 Assessment Billing - SOFY-7 Assessment Tool: SOFY-7 Assessment 76902 ([id number]) PHQ-9 - 56906 - PHQ-9 Billing: Yes ([id number]) Time Spent (min) 60 Assessment & Plan Assessment & Plan (1) Essential (primary) hypertension: Code(s): I10 - Essential (primary) hypertension Category: Medical Plan: The patient's blood pressure was elevated in the office but improved to 131/63 mmHg with rest. She will continue her current regimen of amlodipine 10 mg, lisinopril 30 mg, and metoprolol 25 mg twice daily with no changes at this time. (2) Kidney disease: Code(s): N28.9 - Disorder of kidney and ureter, unspecified Category: Medical Plan: The patient has mild chronic kidney disease, evidenced by a GFR of 51 which has declined from 58. A referral to a mushroom cultivator will be placed for further evaluation and management recommendations, which may include medication review. A comprehensive metabolic panel will be ordered to recheck kidney function. (3) Hypertriglyceridemia: Code(s): E78.1 - Pure hyperglyceridemia Category: Medical Plan: Lab results show elevated triglycerides at 192 mg/dL and LDL at 113 mg/dL despite treatment with atorvastatin and ezetimibe. A fasting lipid panel will be ordered to recheck cholesterol levels. Cardiology recommends continuing statin therapy. (4) Prediabetes: Code(s): R73.03 - Prediabetes Category: Medical Plan: The patient's fasting glucose was 118 mg/dL and hemoglobin A1c was 5.6%, consistent with prediabetes. A repeat hemoglobin A1c and a urine microalbumin test will be ordered to screen for proteinuria. (5) Healthcare maintenance: Code(s): Z00.00 - Encounter for general adult medical examination without abnormal findings Category: Medical Plan: Per cardiology orders, the patient will have a follow-up heart ultrasound. The patient will follow up in six months for her annual physical, or sooner if any lab results are abnormal. Plan Plan Patient was informed and verbally consented to the use of an ambient scribe for clinic note documentation during this visit. 1. Essential Hypertension The patient's blood pressure was elevated in the office but improved to 131/63 mmHg with rest. She will continue her current regimen of amlodipine 10 mg, lisinopril 30 mg, and metoprolol 25 mg twice daily with no changes at this time. 2. Chronic Kidney Disease, Stage 3 The patient has mild chronic kidney disease, evidenced by a GFR of 51 which has declined from 58. A referral to a mushroom cultivator will be placed for further evaluation and management recommendations, which may include medication review. A comprehensive metabolic panel will be ordered to recheck kidney function. 3. Hyperlipidemia Lab results show elevated triglycerides at 192 mg/dL and LDL at 113 mg/dL despite treatment with atorvastatin and ezetimibe. A fasting lipid panel will be ordered to recheck cholesterol levels. Cardiology recommends continuing statin therapy. 4. Prediabetes The patient's fasting glucose was 118 mg/dL and hemoglobin A1c was 5.6%, consistent with prediabetes. A repeat hemoglobin A1c and a urine microalbumin test will be ordered to screen for proteinuria. 5. Health Maintenance Per cardiology orders, the patient will have a follow-up heart ultrasound. The patient will follow up in six months for her annual physical, or sooner if any lab results are abnormal. Discussion Notes I reviewed the recent lab results with the patient from May. I informed her that she has mild kidney disease, as her GFR has decreased from 58 to 51, and explained that it is a measure of kidney filtration. I explained that while it is not severe, I will be referring her to a mushroom cultivator for further evaluation and to have her on their radar, as her kidney function is declining. We discussed her elevated blood glucose and A1c, and I explained the need for a urine test to check for protein. I also informed her that we would recheck her kidney function, cholesterol, and A1c via fasting blood work. I provided the location for the nephrology referral. A follow-up is scheduled in six months for a physical, with instructions to return sooner if any results are abnormal. Orders: Orders Hemoglobin A1c Today Z00.00 - Encounter for general adult medical examination without abnormal findings Microalbumin, Random (w Creat) Today E11.9 - Type 2 diabetes mellitus without complications Comprehensive [place]. Panel Fast Today Z00.00 - Encounter for general adult medical examination without abnormal findings Lipid Panel Today Z00.00 - Encounter for general adult medical examination without abnormal findings Referrals Nephrology Referral I10 - Essential (primary) hypertension, N28.9 - Disorder of kidney and ureter, unspecified Patient Instructions: Patient Instructions - Continue taking all your current medications for blood pressure and cholesterol as prescribed. - Go for fasting blood tests (do not eat or drink anything but water beforehand). The tests will include a comprehensive metabolic panel (to check kidneys), a lipid panel (for cholesterol), and a hemoglobin A1c (for sugar levels). - You will also need to provide a urine sample. You can do this at the same time as your blood test. - The office of a kidney specialist (mushroom cultivator) will call you within a month to schedule an appointment. Their office is located at [address] [place] [address] in [place]. - Your key carrier, Dr. Jones, has ordered an ultrasound of your heart. - Please schedule a follow-up appointment for a physical in six months. If anything serious is found on your tests, we will call you to come in sooner.
[2025-09-19 13:28] VITALS: BP 131/63; PULSE 73
== END 2025-09-19 13:28 | disposition home or self-care (01) ==
LOC: HO.HMCSH 12:57
PROVIDERS: PCP Physician Assistant Medical; Visit Provider Physician Assistant Medical
DX: I10 Essential (primary) hypertension (principal); N28.9 Disorder of kidney and ureter, unspecified; E78.1 Pure hyperglyceridemia; R73.03 Prediabetes; Z00.00 Encounter for general adult medical examination without abnormal findings

== ENCOUNTER → 2025-09-19 12:57 | Outpatient (BNVA) | payer MEDICARE, SELFPAY ==
[2024-01-09 10:46] VITALS: BP 134/64; BP 138/60; BP 180/70; BMI 38.8
== END ==
PROVIDERS: PCP Physician Assistant Medical; Visit Provider Physician Assistant Medical
DX: I10 Essential (primary) hypertension (principal); N28.9 Disorder of kidney and ureter, unspecified; E78.1 Pure hyperglyceridemia; R73.03 Prediabetes; Z13.31 Encounter for screening for depression; N18.30 Chronic kidney disease, stage 3 unspecified
CPT/HCPCS: 96127; 99212